=== PATIENT | male | born 1960 | race Caucasian/White ===

== ENCOUNTER 2018-04-26 06:01 | Inpatient (IN) | payer OTHER ==
[~2018-04-26] VITALS: Ht 182.9 cm; Wt 106.2 kg
[2018-04-26] MEDS ORDERED: LACTATED RINGERS 1,000 ML IV SCH (06:58)
[2018-04-26] MEDS ORDERED: BUPIVACAINE/PF-EPI 0.5% 1:200K ONE ×2 (07:00→08:06)
[2018-04-26] MEDS ORDERED: THROMBIN 5,000 UNIT VIAL TP ONE (07:01)
[2018-04-26] MEDS ORDERED: FENTANYL PF 100 MCG/2ML ONE ×2 (07:01→07:42)
[2018-04-26] MEDS ORDERED: GENTAMICIN 80 MG/2 ML ONE (07:01)
[2018-04-26] MEDS ORDERED: BACITRACIN 50,000 UNIT ONE (07:02)
[2018-04-26] MEDS ORDERED: VANCOMYCIN 1,000 MG ONE (07:02)
[2018-04-26] MEDS ORDERED: LIDOCAINE 1%-EPI 1:100K, 30ML ONE ×2 (07:02→08:06)
[2018-04-26] MEDS ORDERED: morphine SULFATE/PF 1 MG/ML, 10ML ONE (07:02)
[2018-04-26] MEDS ORDERED: PREG300C PO (07:03)
[2018-04-26] MEDS ORDERED: METF500T17 PO (07:03)
[2018-04-26] MEDS ORDERED: INSU100I32 SQ (07:03)
[2018-04-26] MEDS ORDERED: HEPARIN 1,000 UNITS/ML, 30ML ONE (07:06)
[2018-04-26 07:10] VITALS: BP 120/81
[2018-04-26] MEDS ORDERED: MIDAZOLAM 1 MG/ML, 2ML ONE (07:42)
[2018-04-26] MEDS ORDERED: REMIFENTANIL 1 MG ONE (07:49)
[2018-04-26] MEDS ORDERED: KETAMINE 50 MG/ML, 10ML ONE (07:50)
[2018-04-26] MEDS ORDERED: ONDANSETRON 2MG/ML, 2ML IVPush PRN (09:30)
[2018-04-26] MEDS ORDERED: OXYcodone 5 MG/5 ML ORAL.SOL UDC PO PRN (09:30)
[2018-04-26] MEDS ORDERED: MEPERIDINE/PF 25MG/0.5ML IVPush PRN (09:30)
[2018-04-26] MEDS ORDERED: MIDAZOLAM 1 MG/ML, 2ML IV PRN (09:30)
[2018-04-26] MEDS ORDERED: FENTANYL PF 100 MCG/2ML IV PRN (09:30)
[2018-04-26] MEDS ORDERED: LABETALOL 5MG/ML, 20ML IV PRN (09:30)
[2018-04-26] MEDS ORDERED: CEFAZOLIN 1,000 MG ONE ×2 (11:46)
[2018-04-26] MEDS ORDERED: ROCURONIUM 10MG/ML,5ML ONE (11:46)
[2018-04-26] MEDS ORDERED: PROPOFOL 10 MG/ML, 20ML ONE ×4 (11:46→11:47)
[2018-04-26] MEDS ORDERED: LIDOCAINE-MPF 2% ,5ML ONE (11:46)
[2018-04-26] MEDS ORDERED: DEXAMETHASONE 4 MG/ML, 1ML ONE (11:47)
[2018-04-26] MEDS ORDERED: METOCLOPRAMIDE 5 MG/ML, 2ML ONE (11:47)
[2018-04-26] MEDS ORDERED: ONDANSETRON 2MG/ML, 2ML ONE (11:47)
[2018-04-26] MEDS ORDERED: GLYCOPYRROLATE 0.2MG/1ML, 5ML ONE (11:47)
[2018-04-26] MEDS ORDERED: NEOSTIGMINE 1 MG/ML, 10ML ONE (11:47)
[2018-04-26] MEDS ORDERED: SODIUM CHLORIDE 0.9% PF 10ML ONE (11:48)
[2018-04-26] MEDS ORDERED: EPHEDRINE 50 MG/ML, 1ML ONE (11:49)
[2018-04-26] MEDS ORDERED: PHENYLEPHRINE 10 MG/ML ONE (11:49)
[2018-04-26] MEDS ORDERED: HEPARIN 1,000 UNITS/ML, 30ML IVPB ONE (11:52)
[2018-04-26] MEDS: HYDROmorphone 1 MG/ML, 1ML IV PRN ×4 (12:40→13:21)
[2018-04-26] MEDS ORDERED: OXYcodone 5 MG/5 ML ORAL.SOL UDC ONE (12:59)
[2018-04-26] MEDS ORDERED: HYDROmorphone 2 MG/ML, 1ML ONE (12:59)
[2018-04-26 14:30] VITALS: BP 127/83
[2018-04-26] MEDS ORDERED: DIAZEPAM 5 MG/ML, 2ML IV PRN (15:00)
[2018-04-26] MEDS ORDERED: HYDROcodone/APAP 5/325 TABLET PO PRN (15:00)
[2018-04-26] MEDS ORDERED: ONDANSETRON 2MG/ML, 2ML IV PRN (15:00)
[2018-04-26] MEDS ORDERED: CEFAZOLIN PMX 1GM/50ML 50 ML IVPB SCH ×2 (16:00→16:30)
[2018-04-26] MEDS ORDERED: INSULIN REGULAR 100 UNITS/ML, 3ML VIAL SQ-INSULIN SCH (16:00)
[2018-04-26] MEDS ORDERED: INSULIN LISPRO 100 UNITS/ML, PEN SQ-INSULIN SCH (16:30)
[2018-04-26] MEDS ORDERED: CEFAZOLIN PMX 1GM/50ML 50 ML ONE (17:19)
[2018-04-26] MEDS: CEFAZOLIN PMX 1GM/50ML 50 ML IVPB SCH (17:20)
[2018-04-26] MEDS ORDERED: GENTAMICIN 80 MG in SODIUM CHLORIDE 0.9% 50 ML IV ONE (19:00)
[2018-04-26] MEDS: NS + 20MEQ KCL 1,000 ML IV SCH (20:29)
[2018-04-27 00:12] VITALS: BP 102/66
[2018-04-27] MEDS: CEFAZOLIN PMX 1GM/50ML 50 ML IVPB SCH ×3 (02:17→17:14)
[2018-04-27 03:45] VITALS: BP 95/56
[2018-04-27 05:16] LABS: BASOPHILS # (AUTO) 0.02 x10^3/uL (0-0.1); BASOPHILS % (AUTO) 0 % (0-1); EOSINOPHILS % (AUTO) 0 % (1-7); LYMPHOCYTES # (AUTO) 1.05 x10^3/uL (1-3.4); LYMPHOCYTES % (AUTO) 10 % (22-44); MD NO; MEAN CORPUSCULAR HEMOGLOBIN 31.3 pg (27.5-34.5); MEAN CORPUSCULAR HGB CONC 33.7 g/dL (33.2-36.2); MEAN CORPUSCULAR VOLUME 92.7 fL (81-97); MEAN PLATELET VOLUME 8.9 fL (7.4-10.4); MONOCYTES # (AUTO) 0.53 x10^3/uL (0.2-0.8); MONOCYTES % (AUTO) 5 % (2-9); NEUTROPHILS # (AUTO) 8.61 x10^3/uL (1.8-6.8); NEUTROPHILS % (AUTO) 84 % (42-75); PLATELET COUNT 240 x10^3/uL (130-400); RED BLOOD COUNT 3.78 x10^6/uL (4.38-5.82); RED CELL DISTRIBUTION WIDTH 14.8 % (9.4-14.8)
[2018-04-27 05:22] LABS: ANION GAP 5 mmol/L (5-15); CALCIUM 8.1 mg/dL (8.5-10.1); CHLORIDE 107 mmol/L (98-107); CREATININE 0.75 mg/dL (0.7-1.3)
[2018-04-27] MEDS: NS + 20MEQ KCL 1,000 ML IV SCH ×3 (06:00→22:00)
[2018-04-27 06:48] VITALS: BP 110/69
[2018-04-27] MEDS: SENNA/DOCUSATE TABLET PO SCH (10:00)
[2018-04-27 12:14] VITALS: BP 104/68
[2018-04-27] MEDS: OXYcodone/APAP 5/325MG TABLET PO PRN ×4 (13:03→21:14)
[2018-04-27 20:45] VITALS: BP 117/71
[2018-04-27] MEDS: DIAZEPAM 5 MG TABLET PO PRN (21:14)
[2018-04-28] MEDS: CEFAZOLIN PMX 1GM/50ML 50 ML IVPB SCH ×3 (01:16→17:55)
[2018-04-28] MEDS: OXYcodone/APAP 5/325MG TABLET PO PRN ×3 (01:19→10:53)
[2018-04-28 02:31] VITALS: BP 99/58
[2018-04-28] MEDS: DIAZEPAM 5 MG TABLET PO PRN ×3 (02:45→18:52)
[2018-04-28 05:12] LABS: BASOPHILS # (AUTO) 0.03 x10^3/uL (0-0.1); BASOPHILS % (AUTO) 0 % (0-1); EOSINOPHILS % (AUTO) 1 % (1-7); LYMPHOCYTES # (AUTO) 1.38 x10^3/uL (1-3.4); LYMPHOCYTES % (AUTO) 16 % (22-44); MD NO; MEAN CORPUSCULAR HEMOGLOBIN 31.2 pg (27.5-34.5); MEAN CORPUSCULAR HGB CONC 33.6 g/dL (33.2-36.2); MEAN CORPUSCULAR VOLUME 92.8 fL (81-97); MEAN PLATELET VOLUME 8.8 fL (7.4-10.4); MONOCYTES # (AUTO) 0.72 x10^3/uL (0.2-0.8); MONOCYTES % (AUTO) 8 % (2-9); NEUTROPHILS # (AUTO) 6.61 x10^3/uL (1.8-6.8); NEUTROPHILS % (AUTO) 75 % (42-75); PLATELET COUNT 232 x10^3/uL (130-400); RED BLOOD COUNT 4.08 x10^6/uL (4.38-5.82); RED CELL DISTRIBUTION WIDTH 14.8 % (9.4-14.8)
[2018-04-28] MEDS: NS + 20MEQ KCL 1,000 ML IV SCH ×3 (05:27→22:00)
[2018-04-28] MEDS: SENNA/DOCUSATE TABLET PO SCH (08:02)
[2018-04-28 08:11] VITALS: BP 115/81
[2018-04-28] MEDS ORDERED: ONDANSETRON 4 MG TABLET ONE (13:52)
[2018-04-28 15:06] VITALS: BP 92/57
[2018-04-28] MEDS ORDERED: ONDANSETRON ODT 4 MG BC PRN (17:30)
[2018-04-28] MEDS ORDERED: METHYLNALTREXONE 12 MG/0.6 ML SQ ONE (17:30)
[2018-04-28] MEDS: ONDANSETRON ODT 4 MG BC SCH (17:55)
[2018-04-28] MEDS: ACETAMINOPHEN 500 MG TABLET PO SCH (18:01)
[2018-04-28] MEDS: OXYcodone IR 5MG TABLET PO PRN ×2 (18:02→22:03)
[2018-04-28 18:29] VITALS: BP 120/67
[2018-04-28] MEDS ORDERED: POLYETHYLENE GLYCOL 17 GM PACKET PO ONE (21:00)
[2018-04-29] MEDS: DIAZEPAM 5 MG TABLET PO PRN ×2 (00:53→07:01)
[2018-04-29] MEDS: ACETAMINOPHEN 500 MG TABLET PO SCH ×3 (00:53→11:45)
[2018-04-29 01:18] VITALS: BP 110/66
[2018-04-29] MEDS: OXYcodone IR 5MG TABLET PO PRN ×3 (02:17→10:46)
[2018-04-29 05:04] LABS: BASOPHILS # (AUTO) 0.03 x10^3/uL (0-0.1); BASOPHILS % (AUTO) 0 % (0-1); EOSINOPHILS % (AUTO) 2 % (1-7); LYMPHOCYTES # (AUTO) 2.36 x10^3/uL (1-3.4); LYMPHOCYTES % (AUTO) 17 % (22-44); MD NO; MEAN CORPUSCULAR HEMOGLOBIN 31.7 pg (27.5-34.5); MEAN CORPUSCULAR HGB CONC 33.9 g/dL (33.2-36.2); MEAN CORPUSCULAR VOLUME 93.6 fL (81-97); MEAN PLATELET VOLUME 9.1 fL (7.4-10.4); MONOCYTES # (AUTO) 0.98 x10^3/uL (0.2-0.8); MONOCYTES % (AUTO) 7 % (2-9); NEUTROPHILS # (AUTO) 9.98 x10^3/uL (1.8-6.8); NEUTROPHILS % (AUTO) 74 % (42-75); PLATELET COUNT 335 x10^3/uL (130-400); RED BLOOD COUNT 4.52 x10^6/uL (4.38-5.82); RED CELL DISTRIBUTION WIDTH 14.8 % (9.4-14.8)
[2018-04-29 05:15] LABS: ALANINE AMINOTRANSFERASE 20 U/L (12-78); ALBUMIN 3.7 g/dL (3.4-5.0); ANION GAP 12 mmol/L (5-15); CALCIUM 8.9 mg/dL (8.5-10.1); CHLORIDE 101 mmol/L (98-107); CREATININE 1.06 mg/dL (0.7-1.3)
[2018-04-29 05:17] LABS: ALKALINE PHOSPHATASE 99 U/L (45-117); BILIRUBIN,TOTAL 1.2 mg/dL (0.2-1.0)
[2018-04-29] MEDS: NS + 20MEQ KCL 1,000 ML IV SCH (06:00)
[2018-04-29] MEDS: ONDANSETRON ODT 4 MG BC SCH ×2 (07:01→10:46)
[2018-04-29] MEDS: SENNA/DOCUSATE TABLET PO SCH (08:58)
[2018-04-29] MEDS ORDERED: POLYETHYLENE GLYCOL 17 GM PACKET PO SCH (09:00)
[2018-04-29 09:08] VITALS: BP 109/72
[2018-04-29 11:47] VITALS: BP 116/75
[2018-04-29] MEDS ORDERED: ACET-76 PO (12:22)
[2018-04-29 12:32] VITALS: BP 119/74
[2018-04-29] MEDS ORDERED: OXYC5TAB3 PO (13:06)
== END 2018-04-29 13:15 | disposition home or self-care (01) | DRG 460 ==
LOC: ORIP 06:01 → 4NOR 14:41 → DCLOUNGE 04-29 13:02
PROVIDERS: ADMIT Orthopaedic Surgery Orthopaedic Surgery of the Spine; ATTEND Orthopaedic Surgery Orthopaedic Surgery of the Spine
PROC: 00NY0ZZ Release Lumbar Spinal Cord, Open Approach (ICD-10-PCS; 2018-04-26)
PROC: 4A11X4G Monitoring of Peripheral Nervous Electrical Activity, Intraoperative, External Approach (ICD-10-PCS; 2018-04-26)
PROC: 0QB20ZZ Excision of Right Pelvic Bone, Open Approach (ICD-10-PCS; 2018-04-26)
PROC: 00HU03Z Insertion of Infusion Device into Spinal Canal, Open Approach (ICD-10-PCS; 2018-04-26)
PROC: 0SG3071 Fusion of Lumbosacral Joint with Autologous Tissue Substitute, Posterior Approach, Posterior Column, Open Approach (ICD-10-PCS; principal; 2018-04-26 07:30)
DX: M48.07 Spinal stenosis, lumbosacral region (principal); E11.9 Type 2 diabetes mellitus without complications; M54.17 Radiculopathy, lumbosacral region; M43.17 Spondylolisthesis, lumbosacral region; M53.2X6 Spinal instabilities, lumbar region; E66.9 Obesity, unspecified; I95.2 Hypotension due to drugs; T39.95XA Adverse effect of unspecified nonopioid analgesic, antipyretic and antirheumatic, initial encounter; D50.0 Iron deficiency anemia secondary to blood loss (chronic); I10 Essential (primary) hypertension; Z79.4 Long term (current) use of insulin; Z82.0 Family history of epilepsy and other diseases of the nervous system; Z82.49 Family history of ischemic heart disease and other diseases of the circulatory system; Z68.31 Body mass index [BMI] 31.0-31.9, adult; Y92.238 Other place in hospital as the place of occurrence of the external cause
CPT/HCPCS: 36415; 72100; J3490; 80048; 80053; 82962; 85025; 86850; 86900; C1713; G0378; J0690; J1100; J1170; J1644; J2250; J2274; J2405; J2704; J2710; J3010; J3370; J3480; Q0162; C1751; C1762; J1580; J1815; J2370; J2765; J7120